=== PATIENT | female | born 1935 | race Caucasian/White ===

== ENCOUNTER 2018-07-22 06:36 | Inpatient (IN) | payer OTHER ==
[~2018-07-22] VITALS: Ht 157.5 cm; Wt 85.4 kg
--- NOTE | ~2018-07-22 | EKG ---
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
--- NOTE | ~2018-07-22 | EKG ---
[place], [place] ELECTROCARDIOGRAM REPORT NAME: TERESA OLIVAS UNIT #: [id number] ROOM: 422 DOCTOR: FAITH DRAFT REPORT BIRTHDATE: [birth year] 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
--- NOTE | ~2018-07-22 | CON ---
[place], [place] REPORT OF CONSULTATION NAME[id number] UNIT #: [id number] ROOM: 422 DOCTOR: TIMOTEO PATEL MD BIRTHDATE: [birth year] DOS: 07/29/2018 PULMONARY CONSULTATION, EVALUATION AND MANAGEMENT The consultation of the patient is somewhat limited with the patient's overall medical status. Consultation is review of the medical record and documentation by other physician records reviewed as well. HISTORY OF PRESENT ILLNESS: The patient has been admitted to the hospital under the hospice service on 07/22/2018. She has been admitted to the hospital as the patient has reported symptoms of increased shortness of breath occurring with exertion. The patient does have symptoms of cough, which has been noted mild to moderate present prior to the admission for several days as well. She does have chest congestion. The patient reported some symptoms of wheezing as well. She has not been noted symptoms of chest pain or fever. She has been noted with C. difficile colitis, which has been treated. The patient was also reported with diarrhea with oral vancomycin. She has been assessed and managed by the Infectious Disease specialist for that reason as well. This morning, as the patient was seen, she was still reported symptoms of moderate cough, stating that she has small amount of sputum expectoration. Denies symptoms of chest pain, wheezing. Denies any shortness of breath at rest. REVIEW OF SYSTEMS: CONSTITUTIONAL SYMPTOMS: Limited, complaining of fatigue with symptoms of tiredness. EYES: Denies any burning, redness, or tenderness. EARS, NOSE, THROAT SYMPTOMS: Denies sore throat, hoarseness, otalgia, postnasal drainage. CARDIOVASCULAR: Denies any anginal pain or palpitations. GASTROINTESTINAL: Diarrhea on admission was noted improving slowly. There were no symptoms of hematemesis or melena reported. GENITOURINARY: Denies dysuria or suprapubic pain. CENTRAL NERVOUS SYSTEM: No dizziness, headache, diplopia. General weakness was reported. MUSCULOSKELETAL: No pain reported. SKIN: No lesions or rashes reported. PAST MEDICAL HISTORY: 1. Congestive heart failure with aortic stenosis. 2. History reported for chronic obstructive pulmonary disease. 3. History of dementia. 4. Oropharyngeal dysphagia history. 5. Essential hypertension. 6. Fibromyalgia. 7. Gastroesophageal reflux. 8. Peptic ulcer disease. 9. Hyperlipidemia. 10. Hypothyroidism. 11. Temporal giant cell arteritis. 12. Vitamin D deficiency. [place], [place] REPORT OF CONSULTATION NAME: TERESA OLIVAS UNIT #: [id number] ROOM: [facility] DOCTOR: TIMOTEO PATEL MD BIRTHDATE: [birth year] 13. Major depression. 14. Hypothyroidism. 15. Sleep apnea disorder. The details were unknown for that. SOCIAL HISTORY: Noted nonsmoker lifetime. Denies history of alcohol use, illicit drug use. FAMILY HISTORY: Reported as both parents related to congestive heart failure problem. HOME MEDICATIONS: Listed on admission use of Tylenol Arthritis, Lipitor, Coreg, Aricept, vitamin D, Flonase, Plaquenil, Levoxyl, losartan, omeprazole, MiraLax, prednisone 5 mg, Florastor, sertraline and oral vancomycin. ALLERGIES: NOTED SEVERAL ALLERGIES THAT INCLUDE SULFONYLUREA, CELEBREX, KEFLEX, LISINOPRIL, HYDROCHLOROTHIAZIDE, LOSARTAN, DAYPRO, BACTRIM, AND SULINDAC. PHYSICAL EXAMINATION: GENERAL: This is an 83-year-old female who has been currently noted to be awake and alert at the time of admission. There are no signs of respiratory distress this morning. The patient's height was recorded by the nursing staff at the current admission, height of 5 feet 2 inches, weight 188 pounds, BMI 34. VITAL SIGNS: Normal temperature in the last 3 days, respiratory 18-21, heart rate 83-67, blood pressure 169/74-152/65. Pulse oxygen saturation on 2 liters nasal cannula 97% saturation recorded. HEENT: Examination shows head was atraumatic. Eyes nonicterus. NECK: Supple. CARDIOVASCULAR: S1, S2 was audible. There was no gallop. LUNGS: Noted with decreased breath sounds noted in the lungs bilaterally with occasional wheezing, no crackles. ABDOMEN: Flat, soft, nontender. EXTREMITIES: Without any acute edema. MUSCULOSKELETAL: The patient was noted without any gross deformity. CENTRAL NERVOUS SYSTEM: Appeared to be intact. VISIBLE SKIN: No lesions or rashes. LABORATORY DATA: Laboratory data assessment for this patient, CBC that was done yesterday, normal WBC count, hemoglobin 9.8, platelet count was normal. The BMP of yesterday, BUN 43, creatinine was normal. The admission labs was reviewed, CBC on 07/22/2018, normal WBC count, anemia noted as previously. The lactic acid was 1.6 at that time. CMP on that day, BUN 26, creatinine 1.08. BNP, ProBNP is 4737. D-dimer is 1.41. Ultrasound of bilateral lower extremities was done on 07/22/2018 does not show evidence of deep venous thrombosis. CTA of the chest was done on that admission was noted there was no evidence of filling defects of any pulmonary embolism noted. Linear density noted in the lower lungs bilaterally as well. Trace small bilateral pleural fluid was also noted. Echocardiogram that was done on this admission was reviewed. The results were reported Dr. Norris as findings of moderate aortic stenosis, left ventricle ejection fraction as more than 55% with grade 1 diastolic dysfunction. Chest x-ray was also done on 07/28/2018 was also reviewed, just one view was taken and [place], [place] REPORT OF CONSULTATION NAME: TERESA OLIVAS UNIT #: [id number] ROOM: 422 DOCTOR[facility] [birth year] it shows tortuous aorta without any acute pulmonary abnormality such as infiltration or others. IMPRESSION: 1. The patient will be currently admitted to the hospital. It seems like the finding consistent with acute congestive heart failure, interstitial edema. 2. Cough, which seemed to be somewhat chronic, nonproductive, mild to moderate. At this time, I am not sure how much severity is because the patient is not able to clarify that to me. She has also reported history of chronic obstructive pulmonary disease, but the patient noted nonsmoker. There were no findings of emphysema or centrilobular emphysema or other findings were noted. I doubt the diagnosis exist for this patient. 3. History reported for sleep apnea disorder. Again, details were missing for assessment. PLAN OF MANAGEMENT: At this time, the patient would be advised about symptomatic management such as Mucinex, flutter valve ____ she can perform with bronchodilators at this time. The patient could be considered for discharge for this patient home setting and outpatient assessment to further assess the cough and other symptom and additional recommendation of management accordingly. Other supportive therapy, plan of management care and therapies will be done with the progression of the illness. TIMOTEO PAINTING MD CM:CONSTR:REPORT OF CONSULTATION 1234 07/29/18 1604 interface
--- NOTE | ~2018-07-22 | CON ---
[place], [place] REPORT OF CONSULTATION NAME: TERESA OLIVAS UNIT #: [id number] ROOM: 422 DOCTOR: MELISSA FONG MD BIRTHDATE: [birth year] DOS: 07/26/2018 REASON FOR CONSULTATION: UTI. CHIEF COMPLAINT: Shortness of breath. HISTORY OF PRESENT ILLNESS: This is an 83-year-old female presenting from snf for chief complaint of shortness of breath progressively getting worse. On presentation, she was afebrile, currently on 2 liters of oxygen. She had elevated troponins; however, Cardiology is not on board. She did have an echocardiogram done and no previous echo to compare if it showed aortic sclerosis with a limited study because of patient motion artifact. The patient has been treating getting treatment for C. diff with p.o. vancomycin 125 b.i.d. and she continues to have diarrhea 2-3 bowel movements loose a day. She has been started on steroids for her asthma, but it has not improved with her shortness of breath. At the same time, she has some dysuria. UA shows pyuria. Urine culture shows Proteus. She could not get cephalosporins or sulfa drugs because of documented allergies; however, her allergy to cephalosporins is not clear. She said once she got Keflex and it was told to her that it is not working for her, but other than that, she denies having a rash or shortness of breath. PAST MEDICAL HISTORY: Significant for aortic stenosis, CHF, COPD, dementia, diverticulosis, dysphagia, essential hypertension, fibromyalgia, GERD, hemorrhoids, peptic ulcer disease, hyperlipidemia, hypothyroidism, giant cell arteritis and sleep apnea. PAST SURGICAL HISTORY: Not available. SOCIAL HISTORY: Nonalcoholic. No illicit drug. Nonsmoker. FAMILY HISTORY: Father . Mother . ALLERGIES: SULFONYLUREAS, CELECOXIB, KEFLEX UNKNOWN, HYDROCHOLOROTHIAZIDE, LISINOPRIL, TREMETHOPRIM, BACTRIM. HOME MEDICATIONS: Reviewed. She is on 5 mg of prednisone as well as Plaquenil. REVIEW OF SYSTEMS: A 12-point review of systems has been done. Pertinent negatives and positives included in HPI, rest are noncontributory. PHYSICAL EXAMINATION: VITAL SIGNS: Noted stable, mentioned in HPI. GENERAL: The patient is alert, oriented, in mild distress because of shortness of breath. HEENT: Atraumatic, normocephalic. PERRLA, EOMI. RESPIRATORY: Air entry bilaterally equal. Extensive wheezing bilaterally. ABDOMEN: Soft, mild tender to deep palpation. No rigidity or guarding. EXTREMITIES: No pedal edema. NEUROLOGIC: Grossly intact. [place], [place] REPORT OF CONSULTATION NAME: TERESA OLIVAS UNIT #: [id number] ROOM: 422 DOCTOR: MELISSA FONG MD BIRTHDATE: [birth year] Labs and imaging noted. ASSESSMENT: 1. Uncomplicated cystitis with Proteus. 2. Clostridium difficile colitis. 3. Acute onset shortness of breath, cardiac versus noncardiac causes. 4. History of aortic stenosis. PLAN: At this time. Her allergy to CEPHALOSPORIN is not a true allergy. We will give her Omnicef 300 mg twice a day and watch her closely. I discussed with Dr. Denton already to decrease her steroids because that is making her C. diff worse. Increase her dose of oral vancomycin to 250 q.i.d. I do not think that this is primarily an asthma that is causing her to have shortness of breath. She has aortic stenosis and needs evaluation by Cardiology along with her troponin elevation when her creatinine is normal. She can have cardiac asthma, but giving her steroids alone might not help at this time. Nystatin ointment for her diaper rash. Cardiology consult. Thank you for your consult. Please call for any questions. Melissa Fong MD CM:CONSTR:REPORT OF CONSULTATION 1626 07/27/18 0408 interface
--- NOTE | ~2018-07-22 | EKG ---
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
--- NOTE | ~2018-07-22 | PR ---
[place], [place] PROGRESS NOTE [id number] UN[facility] #: [id number] ROOM: 422 DOCTOR: GARIMA MENDOZA MD,TIMOTEO BIRTHDATE: [birth year] DOS: 07/30/2018 PULMONARY PROGRESS NOTE SUBJECTIVE: She was still complaining of wheezing. The patient with nonproductive cough, sitting on the chair this morning of assessment. Denies symptoms of fever, chills or hemoptysis. OBJECTIVE: VITAL SIGNS: Normal temperature, respiratory rate 22, heart rate 90, blood pressure 158/69. The pulse ox saturation on 2-1/2 liters nasal cannula, 97% saturation. HEENT: Examination shows head was atraumatic. Eyes nonicterus. NECK: Supple. CARDIOVASCULAR: S1, S2 is audible. LUNGS: The patient noted with expiratory wheezing. There were no crackles. ABDOMEN: Soft, nontender, bowel sounds present. EXTREMITIES: No acute change. IMPRESSION: The patient with ongoing bronchial asthma exacerbation is very likely. The wheezing was still noted. Cough was also noted intermittently. PLAN OF MANAGEMENT: Use of steroids, bronchodilators, flutter valve, and other treatment. We will monitor the symptoms. TIMOTEO PAINTING MD CM:PNTRANS [id number] TIMOTEO MENDOZA MD 07/31/18 0350 interface
[~2018-07-22 06:36] MED LIST: FIRVANQ50 MG/1 ML PO
[2018-07-22 06:44] VITALS: BP 120/53
[2018-07-22 07:24] LABS: BASO # 0.1 10*3/uL (0.0-0.1); BASO % 0.8 % (0.0-1.0); EOS # 0.1 10*3/uL (0.0-0.4); EOS % 1.2 % (1.0-4.0); HEMATOCRIT 34.6 % (37.0-47.0); HEMOGLOBIN 10.2 g/dl (12.0-16.0); LYMPH # 0.4 10*3/uL (1.3-4.4); LYMPH % 4.4 % (27.0-41.0); MEAN CELL VOLUME 93.3 fl (81.0-99.0); MEAN CORPUSCULAR HGB 27.5 pg (27.0-31.0); MEAN CORPUSCULAR HGB CONC 29.5 g/dl (33.0-37.0); MEAN PLATELET VOLUME 9.8 fl (9.6-12.3); MONO # 0.8 10*3/uL (0.1-1.0); MONO % 8.2 % (3.0-9.0); NEUT # 7.9 10*3/uL (2.3-7.9); PLATELET COUNT AUTOMATED 195 10*3/uL (130-400); RED BLOOD COUNT 3.71 10*6/uL (4.10-5.10); RED CELL DISTRI WIDTH 15.9 % (0-14.5); WHITE BLOOD COUNT 9.2 10*3/uL (4.8-10.8)
--- NOTE | 2018-07-22 07:31 | NUR ---
HAND OFF RECEIVED FROM MARIA DE JESUS HONEYCUTT. PT ALERT AND ORIENTED. SPEECH CLEAR. SLOW TO RESPOND. SKIN PALE COOL AND DRY. MUCUS MEMBRAINS PINK AND DRY. REPORTS NON PRODUCTIVE COUGH, RHONCHI CLEARED WITH COUGH. NO PITTING EDEMA NOTED. REPORTS FEELING INCREASED WEAKNESS AND LETHERGY. DENYING ANY ABD PAINS. REPORTS DIARRHEA WITH HX OF CDIFF. DENIES ANY CP. REPORTS INCREASED SOB OVER THE PAST COUPLE DAYS. 97% ON 3LNC. SIDE RALES UP TIMES TWO. BED LOCKED AND LOW. CONTINUING TO MONITOR.
[2018-07-22 07:40] LABS: ALBUMIN 3.2 gm/dl (3.1-4.5); CREATININE 1.08 mg/dL (0.55-1.02); POTASSIUM 3.9 mmol/L (3.5-5.1); TOTAL PROTEIN 7.3 gm/dL (6.4-8.2)
[2018-07-22 07:45] LABS: ACT PARTIAL THROMBO TIME 23.1 SECONDS (20.8-31.5); INTERNATIONAL NORM RATIO 1.1 (2.0-3.5); TROPONIN I 0.137 ng/ml (<0.045)
--- NOTE | 2018-07-22 08:12 | NUR ---
URINE OBTAINED AND SENT ORDERED.
[2018-07-22 08:40] VITALS: BP 167/77
[2018-07-22 08:56] VITALS: BP 138/86
--- NOTE | 2018-07-22 08:56 | NUR ---
A 83, admitted to , under the services of CASPER Linda FACP, MD with a diagnosis of ELEVATED TROPONIN, DYSPNEA. Chief complaint is SHORTNESS OF BREATH AND COUGH X 2 DAYS. Patient arrived via stretcher from ER. Monitor applied. Initial assessment completed. Vital signs taken and recorded. CASPER LINDA FACP, MD notified of admission to the unit. Orders received. See assessment for past medical history, medications and allergies. Patient and/or family oriented to unit. [facility] visitation policy reviewed. Clothing/patient valuable form completed. CONSTANCE TELLO
[2018-07-22] MEDS ORDERED: FIRVANQ50 MG/1 ML PO (09:12)
[2018-07-22] MEDS ORDERED: 24 HOUR ALLER15.8 ML NAS (09:14)
[2018-07-22] MEDS ORDERED: PREDNISONE5 MG PO (09:17)
[2018-07-22] MEDS ORDERED: VITAMIN D22000 UNIT PO (09:18)
[2018-07-22] MEDS ORDERED: OMEPRAZOLE40 MG PO (09:18)
[2018-07-22] MEDS ORDERED: ZOLOFT100 MG PO (09:19)
[2018-07-22] MEDS ORDERED: FLORASTOR250 MG PO (09:19)
[2018-07-22] MEDS ORDERED: LIPITOR10 MG PO (09:19)
[2018-07-22] MEDS ORDERED: PLAQUENIL200 MG PO (09:20)
[2018-07-22] MEDS ORDERED: COREG25 MG PO (09:21)
[2018-07-22] MEDS ORDERED: ARICEPT5 M1 PO (09:21)
[2018-07-22] MEDS ORDERED: LEVOXYL88 MCG PO (09:21)
[2018-07-22] MEDS ORDERED: LOSARTAN POTAS100 M1 PO (09:22)
[2018-07-22] MEDS ORDERED: MIRALAX17 GM PO (09:23)
[2018-07-22] MEDS ORDERED: ARTHRITIS PAIN650 MG PO (09:24)
--- NOTE | 2018-07-22 10:51 | NUR ---
DR. KAHN NOTIFIED OF ELEVATED TROPONIN THAT IS TRENDING UP. NO FURTHER ORDERS GIVEN AT THIS TIME.
--- NOTE | 2018-07-22 10:54 | NUR ---
MESSAGE LEFT WITH ANSWERING SERVICE FOR ROUTINE CONSULT FOR ELEVATED TROPONINS.
--- NOTE | 2018-07-22 11:00 | NUR ---
patient is off the floor for cta of chest and ultrasound. taken off the floor via bed.
[2018-07-22 12:00] VITALS: BP 140/82
--- NOTE | 2018-07-22 15:24 | NUR ---
Nursing screen received and chart review completed. Patient admitted from skilled nursing with elevated troponins and dyspnea. Patient does not appear to need OT at this time. Consider Occupational Therapy referral if needed for d/c planning or if a deline in ADLs. Thank you. Karly Colunga OTR/l
[2018-07-22 16:00] VITALS: BP 150/48
[2018-07-22 20:00] VITALS: BP 140/76
--- NOTE | 2018-07-22 20:31 | NUR ---
AWAKE/ALERT FOR SHIFT ASSESSMENT. PATIENT USING INCENTIVE SPIROMETER WHEN ENTERING ROOM. ENCOURAGED CONTINUE USE OF THIS. PATIENT C/O MOIST COUGH BUT NOTHING COMING UP WITH IT. DENIES PAIN AT THIS TIME. BED IS IN LOW POSITION. WHEELS LOCKED, CALL LIGHT IN REACH.
[2018-07-23] VITALS: BP 156/58
--- NOTE | 2018-07-23 02:19 | NUR ---
PATIENT SLEEPING. NO S/S OF DISTRESS NOTED. RESPIRATIONS EASY/REG. BED IN LOW POSITION, WHEELS LOCKED, CALL LIGHT IN REACH
--- NOTE | 2018-07-23 03:50 | NUR ---
NOTIFIED DR LOVE OF PATIENT CONTINUED HARSH COUGH AND LUNGS AND COUGH SOUNDING MOIST, REQUESTING COUGH MEDICINE. STATED HE WILL TAKE A LOOK AND PUT SOMETHING IN.
--- NOTE | 2018-07-23 04:38 | NUR ---
PATIENT MEDICATE WITH PRN HYCODAN ORDERD FOR HACKY COUGH
--- NOTE | 2018-07-23 06:27 | NUR ---
NOTIFIED DR LOVE OF NO CDIFF PANEL BEING DONE SINCE ADMISSION. PATIENT POSITIVE CDIFF FROM STAY AT [facility] AT BEGINNING OG JUNE. STATES THERE IS NO REASON TO RETEST PATIENT BECAUSE SHE IS ALREADY ON [place] FOR [place].
[2018-07-23 06:33] LABS: HEMATOCRIT 32.8 % (37.0-47.0); HEMOGLOBIN 9.6 g/dl (12.0-16.0); MEAN CELL VOLUME 93.2 fl (81.0-99.0); MEAN CORPUSCULAR HGB 27.3 pg (27.0-31.0); MEAN CORPUSCULAR HGB CONC 29.3 g/dl (33.0-37.0); MEAN PLATELET VOLUME 10.4 fl (9.6-12.3); PLATELET COUNT AUTOMATED 192 10*3/uL (130-400); RED BLOOD COUNT 3.52 10*6/uL (4.10-5.10); RED CELL DISTRI WIDTH 15.7 % (0-14.5); WHITE BLOOD COUNT 4.4 10*3/uL (4.8-10.8)
[2018-07-23 06:53] LABS: PLATELET SUFFICIENCY NORMAL (NORMAL); TOTAL CELLS COUNTED 100 #CELLS
[2018-07-23 06:54] LABS: POLYCHROMASIA SLIGHT
[2018-07-23 06:55] LABS: ALBUMIN 2.9 gm/dl (3.1-4.5); ALKALINE PHOSPHATASE 80 U/L (45-117); BUN 17 mg/dl (7-24); CHLORIDE 113 mmol/L (98-107); CHOLESTEROL 128 mg/dL (<200); CREATININE 0.84 mg/dL (0.55-1.02); FREE T4 1.08 ng/dl (0.76-1.46); HDL CHOLESTEROL 56 mg/dl (40-60); LDL CHOLESTEROL 62 mg/dL (9-159); PHOSPHOROUS 3.2 mg/dL (2.5-4.9); POTASSIUM 3.7 mmol/L (3.5-5.1); SGOT/AST 22 IU/L (3-35); SGPT/ALT 24 U/L (12-78); SODIUM 145 mmol/L (136-145); TOTAL PROTEIN 7.1 gm/dL (6.4-8.2); TRIGLYCERIDES 49 mg/dl (<150); VLDL CHOLESTEROL 10 mg/dL (6-40)
[2018-07-23 07:13] LABS: ACT PARTIAL THROMBO TIME 23.3 SECONDS (20.8-31.5); INTERNATIONAL NORM RATIO 1.1 (2.0-3.5)
[2018-07-23 08:00] VITALS: BP 170/88
--- NOTE | 2018-07-23 08:37 | NUR ---
Patient came in from [facility] where she was short term skilled. Her [employer] Medicare has just recently cut her for care home. If patient wanted to return to [facility] it would require a precert through [employer] and family would have to pay 10 days up front before being able to return.
--- NOTE | 2018-07-23 09:00 | NUR ---
Measuring Clerk in to see patient. She is currently short term at [facility] for therapy and would like to return there upon discharge. She is aware her insurance last of coverage was today, Thursday, and starting tomorrow she has a co-pay. She said she was going to have her sign write the check for the co-pay. When medically stable she will be discharged to [facility].
[2018-07-23 09:15] VITALS: BP 170/88
--- NOTE | 2018-07-23 11:15 | NUR ---
Occupational Therapy evaluation completed on 4 with full eval to follow. Precautions include fall risk, O2 use, SOB w/ exertion,IV UE, bed alarm. Patient is moderate complexity level 08659 via chart review, testing and evaluation Recommend OT per POC and return to SNF to enable home at PLOF independence. Thank you for this referral. Karly Colunga OTR/l
[2018-07-23 11:43] LABS: BILIRUBIN NEGATIVE (NEGATIVE); BLOOD NEGATIVE (NEGATIVE); CLARITY CLOUDY (CLEAR); COLOR STRAW (YELLOW); GLUCOSE NEGATIVE (NEGATIVE); KETONE NEGATIVE (NEGATIVE); LEUKO ESTERASE 1+ (NEGATIVE); NITRITE NEGATIVE (NEGATIVE); UROBILINOGEN 0.2 E.U./dl (0.2-1.0)
[2018-07-23 12:00] VITALS: BP 168/80
[2018-07-23 12:00] LABS: BACTERIA 1+; CALCIUM OXALATE CRYSTALS 1+; WBC TNTC wbc/hpf (0-5)
[2018-07-23 16:00] VITALS: BP 180/70
--- NOTE | 2018-07-23 19:47 | NUR ---
AWAKE/ALERT FOR SHIFT ASSESSMENT. PATIENT ON BREATHING TREATMENT AT THIS TIME. C/O A SINUS HEADACHE AND CONGESTION. IV FLUIDS DC'D. BED IN LOW POSITION, WHEELS LOCKED, BED ALARM ON, CALL LIGHT IN REACH.
[2018-07-23 20:00] VITALS: BP 155/89
--- NOTE | 2018-07-23 22:30 | NUR ---
PATIENT C/O A HEADACHE AND BACK PAIN RATED 8/10. MEDICATED WITH PRN NORCO ORDERED. PATIENT HAS A PRODUCTIVE HACKY COUGH. MEDICATED WITH HYCODAN ORDERED.
[2018-07-24] VITALS: BP 157/86
--- NOTE | 2018-07-24 05:13 | NUR ---
PATIENT MEDICATED WITH PRN HYCODAN ORDERED FOR A COUGH
[2018-07-24 08:00] VITALS: BP 160/78
--- NOTE | 2018-07-24 08:00 | NUR ---
PHYSICAL THERAPY PT EVAL COMPLETED TODAY ON LEVEL 4: FULL EVALUATION TO FOLLOW: RECOMMEND PT WHILE HERE TO ADDRESS DECREASED STRNENGTH, ENDURANCE AND BALANCE AND AMBULATION. PT EVAL IS MODERATE COMPLEXITY BASED ON CHART REVIEW, TEST RESULTS AND EVALUATION : [id number]. D/C REC: RETURN TO [facility] FOR CONTIUED SNF TO REGAIN AND RETURN TO PLOF. THANK YOU FOR REFERRAL AYAH WORTHY PT
--- NOTE | 2018-07-24 10:22 | NUR ---
ENTERED ROOM TO FIX HEART MONITOR AND PATIENT STATES SHE IS HOT AND IS AUDIBLY WHEEZING. PULSE OX CHECKED AND IS 97% 3LNC. RESPIRATORY CALLED AND WILL COME SEE HER FOR POSSIBLE TREATMENT.
[2018-07-24 12:00] VITALS: BP 169/83
[2018-07-24 16:00] VITALS: BP 121/61
[2018-07-24 20:00] VITALS: BP 128/95
[2018-07-25] VITALS: BP 162/59
[2018-07-25 07:50] LABS: HEMATOCRIT 32.4 % (37.0-47.0); HEMOGLOBIN 9.6 g/dl (12.0-16.0); LYMPH # 0.4 10*3/uL (1.3-4.4); MEAN CELL VOLUME 93.9 fl (81.0-99.0); MEAN CORPUSCULAR HGB 27.8 pg (27.0-31.0); MEAN CORPUSCULAR HGB CONC 29.6 g/dl (33.0-37.0); MEAN PLATELET VOLUME 10.1 fl (9.6-12.3); MONO # 0.6 10*3/uL (0.1-1.0); MONO % 8.2 % (3.0-9.0); NEUT # 6.2 10*3/uL (2.3-7.9); NEUT % 85.1 % (47.0-73.0); PLATELET COUNT AUTOMATED 218 10*3/uL (130-400); RED BLOOD COUNT 3.45 10*6/uL (4.10-5.10); RED CELL DISTRI WIDTH 15.9 % (0-14.5); WHITE BLOOD COUNT 7.3 10*3/uL (4.8-10.8)
[2018-07-25 08:00] VITALS: BP 155/85
[2018-07-25 08:03] LABS: BUN 31 mg/dl (7-24); CHLORIDE 111 mmol/L (98-107); CREATININE 0.78 mg/dL (0.55-1.02); POTASSIUM 3.9 mmol/L (3.5-5.1); SODIUM 145 mmol/L (136-145)
[2018-07-25 12:00] VITALS: BP 117/51
[2018-07-25 16:00] VITALS: BP 125/53
[2018-07-25 20:00] VITALS: BP 133/82
--- NOTE | 2018-07-25 23:20 | NUR ---
DR SHEA AWARE OF PATIENT'S PULSE OX 84% ON 1.5L O2. OXYGEN CURRENTLY ON 3L NASAL CANNULA AT 94%. STATES TO HAVE BREATHING TREATMENT DONE EARLY.
[2018-07-26 00:09] VITALS: BP 132/60
--- NOTE | 2018-07-26 01:09 | NUR ---
24 HR chart check completed.
--- NOTE | 2018-07-26 01:31 | NUR ---
PATIENT RESTING IN BED WITH EYES CLOSED. RESPS EASY AND REGULAR. 3L O2 NC INTACT. PULSE OX 98%. BED ALARM ON, BED IN LOWEST POSITION, CALL LIGHT IN REACH
[2018-07-26 06:15] LABS: BASO % 0.3 % (0.0-1.0); EOS % 0.7 % (1.0-4.0); HEMATOCRIT 34.6 % (37.0-47.0); HEMOGLOBIN 9.7 g/dl (12.0-16.0); LYMPH # 0.9 10*3/uL (1.3-4.4); LYMPH % 14.8 % (27.0-41.0); MEAN CELL VOLUME 93.8 fl (81.0-99.0); MEAN CORPUSCULAR HGB 26.3 pg (27.0-31.0); MEAN PLATELET VOLUME 10.3 fl (9.6-12.3); MONO # 0.8 10*3/uL (0.1-1.0); MONO % 13.1 % (3.0-9.0); NEUT # 4.1 10*3/uL (2.3-7.9); NEUT % 70.2 % (47.0-73.0); PLATELET COUNT AUTOMATED 214 10*3/uL (130-400); RED BLOOD COUNT 3.69 10*6/uL (4.10-5.10); RED CELL DISTRI WIDTH 15.9 % (0-14.5); WHITE BLOOD COUNT 5.9 10*3/uL (4.8-10.8)
[2018-07-26 06:23] LABS: ALBUMIN 2.7 gm/dl (3.1-4.5); ALKALINE PHOSPHATASE 70 U/L (45-117); CHLORIDE 110 mmol/L (98-107); CREATININE 0.92 mg/dL (0.55-1.02); POTASSIUM 3.9 mmol/L (3.5-5.1); SGOT/AST 22 IU/L (3-35); SGPT/ALT 30 U/L (12-78); SODIUM 143 mmol/L (136-145); TOTAL PROTEIN 6.5 gm/dL (6.4-8.2)
[2018-07-26 06:25] LABS: BUN 43 mg/dl (7-24)
[2018-07-26 08:00] VITALS: BP 172/82
--- NOTE | 2018-07-26 09:00 | NUR ---
Runner Worker in to see patient. She is currently short term at [facility] for therapy and would like to return there upon discharge. She said she was going to have her sign write the check for the co-pay. When medically stable and payment and auth obtained she will be discharged to [facility]. event planner following.
--- NOTE | 2018-07-26 09:27 | NUR ---
NOTIFIED DR CASTAÑEDA OF BP 172/82. NO NEW ORDERS.STATED HE WOULD NOTIFIY DAY TEAM D/T [facility]
--- NOTE | 2018-07-26 10:45 | NUR ---
OT NOTE Pt was seen this A.M. 1:1 for 20 minute OT session. Upon arrival pt was sitting upright in recliner, pt identified by name and . Pt had no complaints at this time and presented to therapy on room air with SpO2 being 98%. Pt completed sit to stand from chair level with Ariadne X 1 followed by stand pivot to bedside commode with CGA and use of w/w for UE support. Clothing managment completed with maxA and toilet hygiene completed with maxA due to being unsteady without UE support. Pt then completed functional mobility to the bathroom and back with CGA and use of w/w for UE support. Pt was left sitting reclined in recliner with call light in hand, tray table in place, and body alarm on for safety. Continue with rec D/C plan of returning to SNF. EUGENIA Avila/Varghese
--- NOTE | 2018-07-26 11:24 | NUR ---
PHYSICAL THERAPY Patient presented to therapy in sitting in bedside chair with report of only arthritic pain and minor SOB. Patient PULSE OX was taken and was recorded within normal limits 95%. Patient STS transfer with MIN A X 2 with verbal cues for pushing off of chair armrests with hands. Patient transferred to and from bedside commode with MIN A X 1 with verbal cues for hand placement. Patient ambulated with W/W and MIN A X 1 to CGA X 1 for 50' x 1 WITH NO spO2. Patient's O2 SATS were taken and recorded as 94% - 96% post ambulating. Patient was left in bedside chair with call light within reach, chair alarm attached, and LEs elevated. Patient was 1:1 with this CAR REPAIR SUPERVISOR for 15 minutes total. Patient's chair alarm witnessed being attached by rolando dugan. EDISON CATALAN CAR REPAIR SUPERVISOR
[2018-07-26 12:00] VITALS: BP 128/51
--- NOTE | 2018-07-26 12:43 | NUR ---
OT NOTE Pt was seen this P.M. 1:1 for second OT session consisting of 23 minutes. Upon arrival pt was sitting reclined in recliner, pt identified by name and and had no complaints at this time. Pt presented to therapy on room air with SpO2 95%. Pt completed multiple sit to stand transfers from chair level with modA for inital stand and Ariadne for last two. Challenged pt's static standing tolerance needed for increased I in self care tasks and functional transfers and pt was able to tolerate aprox 1 min, 30 sec, and 1 minute before sitting due to "B legs feeling weak and tired." Pt then completed functional mobility to the bedside commode with CGA and use of w/w for UE support. Pt transferred on to bedside commode with CGA and verbal prompts for proper hand placement for enhanced safety. Clothing management completed with maxA and toilet hygiene completed with maxA due to LOB without UE support and not having enough room on commode due to handles to reach back. Pt transferred off bedside commode with Ariadne and completed functional mobility back to recliner with CGA and use of w/w. There she was left sitting reclined in recliner with call light in hand, tray table in place, and body alarm activated for safety. Continue with rec D/C plan of returning to SNF. EUGENIA Avila/Varghese
--- NOTE | 2018-07-26 13:03 | NUR ---
Patient clincals and therapy faxed to [facility] license of [facility], asked to start precert; waiting for auth and for son to pay [facility] the required 10 days in advance.
--- NOTE | 2018-07-26 15:34 | NUR ---
NOTIFIED DR KLEIN OFFICE OF NEW CONSULT FOR DEBBY TRUONG.
[2018-07-26 16:00] VITALS: BP 150/57
[2018-07-26 20:00] VITALS: BP 150/60
--- NOTE | 2018-07-26 21:35 | NUR ---
PATIENT RESTING IN BED WATCHING TV. NO NEEDS MADE. NO S/S OF DISTRESS. LARGE AMOUTH OF EXPECTORATION WITH COUGHING NOTED. MEDICATIONS TAKEN WITHOUT DIFFICULTY. BED IN LOWEST POSITION, BED ALARM ON, CALL LIGHT IN REACH
--- NOTE | 2018-07-26 21:45 | NUR ---
24 HR chart check completed.
[2018-07-27] VITALS (7 sets, daily range): BP systolic 124–186; BP diastolic 51–72
--- NOTE | 2018-07-27 00:38 | NUR ---
DR LOVE AWARE OF BLOOD PRESSURE. STATES HE WILL PUT HYDRALAZINE IN
--- NOTE | 2018-07-27 04:26 | NUR ---
DR LOVE AWARE OF BLOOD PRESSURE. ORDER TAKEN
[2018-07-27 06:45] LABS: BASO % 0.1 % (0.0-1.0); EOS % 0.1 % (1.0-4.0); HEMATOCRIT 36.9 % (37.0-47.0); HEMOGLOBIN 10.9 g/dl (12.0-16.0); LYMPH # 0.9 10*3/uL (1.3-4.4); LYMPH % 10.6 % (27.0-41.0); MEAN CORPUSCULAR HGB 26.5 pg (27.0-31.0); MEAN CORPUSCULAR HGB CONC 29.5 g/dl (33.0-37.0); MEAN PLATELET VOLUME 10.1 fl (9.6-12.3); MONO # 0.7 10*3/uL (0.1-1.0); MONO % 7.9 % (3.0-9.0); PLATELET COUNT AUTOMATED 253 10*3/uL (130-400); RED BLOOD COUNT 4.11 10*6/uL (4.10-5.10); RED CELL DISTRI WIDTH 15.9 % (0-14.5); WHITE BLOOD COUNT 8.8 10*3/uL (4.8-10.8)
[2018-07-27 07:00] LABS: CHLORIDE 109 mmol/L (98-107); CREATININE 0.84 mg/dL (0.55-1.02); POTASSIUM 4.3 mmol/L (3.5-5.1); SODIUM 142 mmol/L (136-145)
[2018-07-27 07:07] LABS: BUN 31 mg/dl (7-24)
[2018-07-27 07:11] LABS: MEAN CELL VOLUME 89.8 fl (81.0-99.0)
--- NOTE | 2018-07-27 09:00 | NUR ---
Linderman Machine Operator in to see patient. Discussed payment to [facility] and she stated her daughter or son would make the payment or transfer the money to her account so she could make the payment. estate planner following for return to [facility] after precert and payment is made.
--- NOTE | 2018-07-27 09:25 | NUR ---
OT NOTE Pt was seen this A.M. 1:1 for 25 minute OT session. Upon arrival pt was supine in bed, pt identified by name and . Pt had no complaints at this time and presented to therapy with continous 2L-O2 via NC which she remained on throughout entire session. Pt transferred supine to sit EOB with CGA. Pt then completed functional mobility into the bathroom with CGA and use of w/w for UE support. There she transferred on to standard commode with Ariadne for safety with alignment and education on grab bar. Clothing management completed with maxA and toilet hygiene completed with maxA. Pt transferred off standard commode with Ariadne and use of grab bar. She then stood sink side while washing her hands with CGA for safety. Pt was able to tolerate aprox 2 minutes of static standing at a time before sitting due to fatigue. Functional mobility then completed to recliner with CGA where she was left sitting upright with call light in hand, tray table in place, and body alarm activated for safety. Continue with rec D/C plan of SNF return. EUGENIA Avila/Varghese
--- NOTE | 2018-07-27 09:54 | NUR ---
PHYSICAL THERAPY Patient presented to therapy in supine position with head of bed elevated and 2 liters of spO2 WITH NO CONCERNS OR COMPLAINTS. Patient agrees to therapy session. Patient was identified by name and . Patient performed supine to sitting at EOB transfer with MIN A X 1. Patient transferred STS with MIN A X 1. Patient ambulated 35' x 1 with W/W and CGA X 1 with verbal cues for upright posture with 2 liters of spO2 via nasal canula. Patient transferred to bedside chair with MIN A X 1. Patient required verbal cues for putting hands back on armrests of chair to sit. Patient was left in sitting position in bedside chair with call light within reach , chair alarm tested and attached to patient , and tray table with breakfast in front of patient. Patient was 1:1 with this DOCTOR NATUROPATHIC for 20 minutes total. EDISON CATALAN PTA
--- NOTE | 2018-07-27 18:42 | NUR ---
ZOFRAN 4 MG,VISTARIL AND FLEXERIL GIVEN PER MAR FOR C/O PAIN,ANXIETY AND NAUSEA.
--- NOTE | 2018-07-27 19:57 | NUR ---
PATIENT RESTING IN CHAIR AT BEDSIDE WITH NO NEEDS MADE. BED IN LOWEST POSITION, CALL LIGHT IN REACH
[2018-07-28] VITALS: BP 146/56
--- NOTE | 2018-07-28 01:30 | NUR ---
24 HR chart check completed.
[2018-07-28 05:59] LABS: BASO % 0.1 % (0.0-1.0); EOS # 0.1 10*3/uL (0.0-0.4); EOS % 0.6 % (1.0-4.0); HEMATOCRIT 32.6 % (37.0-47.0); HEMOGLOBIN 9.8 g/dl (12.0-16.0); LYMPH # 0.9 10*3/uL (1.3-4.4); LYMPH % 10.4 % (27.0-41.0); MEAN CELL VOLUME 90.3 fl (81.0-99.0); MEAN CORPUSCULAR HGB 27.1 pg (27.0-31.0); MEAN CORPUSCULAR HGB CONC 30.1 g/dl (33.0-37.0); MEAN PLATELET VOLUME 10.1 fl (9.6-12.3); MONO # 0.8 10*3/uL (0.1-1.0); NEUT # 6.7 10*3/uL (2.3-7.9); NEUT % 78.5 % (47.0-73.0); PLATELET COUNT AUTOMATED 243 10*3/uL (130-400); RED BLOOD COUNT 3.61 10*6/uL (4.10-5.10); RED CELL DISTRI WIDTH 16.1 % (0-14.5); WHITE BLOOD COUNT 8.5 10*3/uL (4.8-10.8)
[2018-07-28 06:10] LABS: CHLORIDE 109 mmol/L (98-107); CREATININE 0.88 mg/dL (0.55-1.02); POTASSIUM 4.2 mmol/L (3.5-5.1); SODIUM 142 mmol/L (136-145)
[2018-07-28 06:17] LABS: BUN 43 mg/dl (7-24)
[2018-07-28 08:00] VITALS: BP 152/65
--- NOTE | 2018-07-28 09:00 | NUR ---
Oracle Hyperion Consultant in to see patient. Discussed payment to [facility] and she stated her daughter or son would make the payment or transfer the money to her account so she could make the payment. technical planner following for return to [facility] after precert and payment is made. technical planner following.
--- NOTE | 2018-07-28 09:07 | NUR ---
PHYSICAL THERAPY PATIENT IS EATING BREAKFAST AT THIS TIME. WILL CHECK BACK LATER. EDISON CATALAN SUPERVISORY CBP OFFICER
--- NOTE | 2018-07-28 09:29 | NUR ---
Updated therapy, med list and clinicals faxed to [facility] to continue precert. Still waiting on auth.
--- NOTE | 2018-07-28 10:59 | NUR ---
DR. PAINTING NOTIFIED OF CONSULT.
[2018-07-28 12:00] VITALS: BP 84/48
--- NOTE | 2018-07-28 12:02 | NUR ---
PHYSICAL THERAPY Patient presented to therapy in sititng position in bedside chair wit hchair alarm attached and report of having sinusitis. Patint agrees to therapy session. Patient was identified by name and . Patient performed is on spO2 NASAL CANULA. Patient transferred STS with MIN A X 1. Patient ambulated with W/W and 3 liters of spO2 via nasal canula with Close Supervision for 80' x 1 inside room only, due to patient being in isolation. Patient then sat in bedside chair and performed bilateral LE ther ex 2 x 10 reps each in all planes of movement for strengthening the LEs in order to improve patient's functional mobility. Patient was left in sitting position in bedside chair with call light within reach, chair alarm attached, and LEs elevated. Patient's tray table near patient. Patient was 1:1 with this BREAKFAST HOST for 23 minutes total. EDISON CATALAN BREAKFAST HOST
--- NOTE | 2018-07-28 12:04 | NUR ---
Pt was identified by name & birthdate. Pt was seen in OT x 15 minutes only due to excessive coughing and difficulty breathing. Frequent rest periods while performing grooming after set up. Continue with POC.
--- NOTE | 2018-07-28 12:36 | NUR ---
NOTIFIED DR. TREVIZO OF PT'S BP.
--- NOTE | 2018-07-28 13:15 | NUR ---
UPDATED DR. TREVIZO OF PT'S BP.
--- NOTE | 2018-07-28 15:00 | NUR ---
Patient just recieved auth for [facility], auth is good for 48 hours. Patient is ok to go if medically stable; if she doesn't go by the afternoon of 07/29/18 we will have to restart precert.
[2018-07-28 16:00] VITALS: BP 150/62
[2018-07-28 20:00] VITALS: BP 119/55
--- NOTE | 2018-07-28 20:20 | NUR ---
INTO SEE PT. PT ASSESSED. PT HAS NO COMPLAINTS AT THIS TIME. WILL CONTINUE TO MONITOR
[2018-07-29] VITALS: BP 169/74
--- NOTE | 2018-07-29 | NUR ---
INTO SEE PT. PT RESTING AT THIS TIME. AROUSES EASILY. PT ASSESSED. NO COMPLAINTS AT THIS TIME,.
--- NOTE | 2018-07-29 04:10 | NUR ---
INTO SEE PT. PT RESTING. BREATHER EASY. WILL CONTINU TO MONITOR
[2018-07-29 07:33] LABS: BASO % 0.2 % (0.0-1.0); EOS # 0.1 10*3/uL (0.0-0.4); EOS % 0.8 % (1.0-4.0); HEMATOCRIT 35.8 % (37.0-47.0); HEMOGLOBIN 10.4 g/dl (12.0-16.0); LYMPH % 11.2 % (27.0-41.0); MEAN CELL VOLUME 90.9 fl (81.0-99.0); MEAN CORPUSCULAR HGB 26.4 pg (27.0-31.0); MEAN CORPUSCULAR HGB CONC 29.1 g/dl (33.0-37.0); MEAN PLATELET VOLUME 10.3 fl (9.6-12.3); MONO # 0.8 10*3/uL (0.1-1.0); MONO % 9.3 % (3.0-9.0); NEUT # 6.5 10*3/uL (2.3-7.9); NEUT % 76.5 % (47.0-73.0); PLATELET COUNT AUTOMATED 240 10*3/uL (130-400); RED BLOOD COUNT 3.94 10*6/uL (4.10-5.10); RED CELL DISTRI WIDTH 16.1 % (0-14.5); WHITE BLOOD COUNT 8.5 10*3/uL (4.8-10.8)
[2018-07-29 07:51] LABS: BUN 37 mg/dl (7-24); CHLORIDE 110 mmol/L (98-107); CREATININE 0.91 mg/dL (0.55-1.02); POTASSIUM 4.6 mmol/L (3.5-5.1); SODIUM 144 mmol/L (136-145)
--- NOTE | 2018-07-29 09:00 | NUR ---
Insulation Board Calender Operator in to see patient. Discussed payment to [facility] and she stated her daughter or son would make the payment or transfer the money to her account so she could make the payment. urban and regional planner following for return to [facility].
--- NOTE | 2018-07-29 11:32 | NUR ---
Pt was identified by name & birthdate. Pt went from supine to sit with supervision only. Sit to stand required CGA & transferred to BSC with CGA. Toielt hygiene with set up and MALIHA donned depends for pt. Pt transferred to bedside chair with CGA for safety due to history of falls. Continue with POC. Gloria JETT/Varghese
[2018-07-29 12:00] VITALS: BP 121/53
--- NOTE | 2018-07-29 14:18 | NUR ---
PHYSICAL THERAPY Patient presented to therapy in sitting position with 2 liters of spO2 via nasal canula and report of continued sinusitis. Patient has no other complaints. Patient agrees to therapy session. Patient was identified by name and . Patient performed STS transfer with MIN A X 1. Patient ambulated with W/W and CGA X 1 for 144' x 1 with 2 liters of spO2 via nasal canula. Patient sat in bedside chair and performed bilateral LE ther ex 2 x 10 reps each in all planes of movement for strengthening in order to improve patient's functional mobility. Patient was left in bedside chair with call light within reach, LEs elevated, and chair alarm tested and attached to patient. Patient was attached to wall outlet with 2 liters if spO2. Patient was 1:1 with this CUSTOMER ORDER CLERK for 23 minutes total. EDISON CATALAN CUSTOMER ORDER CLERK
--- NOTE | 2018-07-29 14:32 | NUR ---
OCCUPATIONAL THERAPY CO-SIGN I approve of the Occupational Therapy notes written above. ROD DENG OTR/Varghese
[2018-07-29 16:00] VITALS: BP 120/55
[2018-07-29 20:00] VITALS: BP 102/54
[2018-07-30] VITALS: BP 162/59
[2018-07-30 08:00] VITALS: BP 158/69
--- NOTE | 2018-07-30 08:41 | NUR ---
Patients authorization for [facility] . Will have to restart precert once patient is ready for discharge.
--- NOTE | 2018-07-30 08:45 | NUR ---
OT NOTE Pt was seen this A.M. 1:1 for 25 minute OT session. Upon arrival pt was supine in bed, pt identified by name and and had no complaints at this time. pt presented to therapy with continous 2L-O2 via NC which she remained on throughout entire session. Pt transferred supine to sit EOB with SBA. Functional mobility completed into the bathroom with SBA and use of w/w for UE support. There she transferred on to standard commode with CGA, clothing management completed with modA, and toilet hgyiene completed with modA. She then transferred off standard commode with Ariadne and use of grab bar. Pt doffed/donned gown while standing with Ariadne. Pt was able to tolerate aporx 3 minutes at a time of static standing before sitting due to fatigue. Pt stood sink side while washing her hands with SBA. Functional mobility completed back to recliner where she was left sitting upright in recliner with call light in hand, tray table in place, and body alarm on for safety. Continue with rec D/C plan to return to SNF. EUGENIA Avila/Varghese
--- NOTE | 2018-07-30 08:52 | NUR ---
PHYSICAL THERAPY Patient presented to therapy in supine with nasal congestion and chest congestion with no other complaints. Patient agrees to therapy session. Patient was identified by name nad . Patient performed supine to sitting at EOB with SBA. Patient transferred STS with SBA. Patient is on 2 liters of spO2 via nasal canula. Patient ambulated with W/W and CGA X 1 for 60' x 1 with verbal cues for upright posture. Patient transferred to bedside chair with CGA X 1. Patient was left in sitting position with call light within reach, chair alarm tested and attached to patient and tray table in front of patient. Patient was 1:1 with this LEAD PRESSMAN ROTO GRAVURE PRINTING for 20 minutes total. EDISON CATALAN LEAD PRESSMAN ROTO GRAVURE PRINTING
--- NOTE | 2018-07-30 09:00 | NUR ---
Spectrograph Operator in to see patient. No new needs or request at this time. She states her son made the payment to [facility]. When medically stable and auth is received she will be discharged to [facility]. technical planner following.
--- NOTE | 2018-07-30 11:30 | NUR ---
Contacted Eusebia at [facility] and stated patient is ready for discharge, faxed updates; she is contacting insurance company, waiting for auth.
[2018-07-30 12:00] VITALS: BP 100/49
--- NOTE | 2018-07-30 13:36 | NUR ---
PHYSICAL THERAPY CO-SIGN I approve of the Phyical Therapy notes written above. XIMENA SAGE PT
--- NOTE | 2018-07-30 14:24 | NUR ---
Received auth from [facility], patient is ok to discharge today
[2018-07-30] MEDS ORDERED: Nystatin Ointme30 GM T (14:42)
[2018-07-30] MEDS ORDERED: Ipratropium Brom3 ML NEB (14:42)
[2018-07-30] MEDS ORDERED: CEFDINIR300 MG PO (14:42)
[2018-07-30] MEDS ORDERED: VANCOMYCIN250 MG/2.5 PO (14:42)
--- NOTE | 2018-07-30 14:52 | NUR ---
Patient is discharged to return to [facility], transportation scheduled for 4 PM with dona ana. NH, nursing/kitchen steward notified. DC information faxed.
--- NOTE | 2018-07-30 15:20 | NUR ---
PHYSICAL THERAPY CO-SIGN I approve of the Phyical Therapy notes written above. XIMENA SAGE PT
--- NOTE | 2018-07-30 16:48 | NUR ---
Discharge instructions reviewed with patient/family. Patient receptive and verbalizes understanding. Follow-up care arranged. Written instructions given to patient/family. PATIENT TAKEN FROM FLOOR VIA AMBULANCE. NO S/S OF DISTRESS. ANDRÉS SEBASTIAN
--- NOTE | 2018-08-02 07:54 | NUR ---
OCCUPATIONAL THERAPY CO-SIGN I approve of the Occupational Therapy notes written above. ROD DENG OTR/Varghese
== END 2018-07-30 16:48 | disposition other institution (70) | DRG 371 ==
LOC: ED 06:36 → 4E 08:04 → EDHOLD 08:04 → 4E 08:20
PROVIDERS: Emergency Medicine Emergency Medical Services; Family Medicine; Internal Medicine; ADMIT Internal Medicine
DX: A04.71 Enterocolitis due to Clostridium difficile, recurrent (principal); N17.0 Acute kidney failure with tubular necrosis; J96.01 Acute respiratory failure with hypoxia; I50.33 Acute on chronic diastolic (congestive) heart failure; J44.1 Chronic obstructive pulmonary disease with (acute) exacerbation; J98.11 Atelectasis; D64.9 Anemia, unspecified; D72.810 Lymphocytopenia; I70.0 Atherosclerosis of aorta; E87.8 Other disorders of electrolyte and fluid balance, not elsewhere classified; R73.9 Hyperglycemia, unspecified; E86.0 Dehydration; K21.9 Gastro-esophageal reflux disease without esophagitis; E03.9 Hypothyroidism, unspecified; G47.30 Sleep apnea, unspecified; M35.3 Polymyalgia rheumatica; E55.9 Vitamin D deficiency, unspecified; F03.90 Unspecified dementia, unspecified severity, without behavioral disturbance, psychotic disturbance, mood disturbance, and anxiety; N30.90 Cystitis, unspecified without hematuria; I35.0 Nonrheumatic aortic (valve) stenosis; R13.11 Dysphagia, oral phase; I11.0 Hypertensive heart disease with heart failure; F32.5 Major depressive disorder, single episode, in full remission; B96.4 Proteus (mirabilis) (morganii) as the cause of diseases classified elsewhere; E66.9 Obesity, unspecified; I95.9 Hypotension, unspecified; K57.30 Diverticulosis of large intestine without perforation or abscess without bleeding; I25.10 Atherosclerotic heart disease of native coronary artery without angina pectoris; M79.7 Fibromyalgia; E78.5 Hyperlipidemia, unspecified; M31.6 Other giant cell arteritis; Z87.11 Personal history of peptic ulcer disease; Z88.1 Allergy status to other antibiotic agents; Z88.2 Allergy status to sulfonamides; Z88.8 Allergy status to other drugs, medicaments and biological substances; Z82.49 Family history of ischemic heart disease and other diseases of the circulatory system; Z79.899 Other long term (current) drug therapy; Z79.52 Long term (current) use of systemic steroids